=== PATIENT | male | born 1955 | race Caucasian/White ===

== ENCOUNTER → 2025-02-28 | Outpatient (CLI) | payer SELFPAY ==
[2025-02-28 12:02] LABS: PSA,Total - Annual Screen 0.57 ng/mL (0.02-4.00)
== END | disposition home or self-care (01) ==
PROVIDERS: PCP Physician Assistant; Referring Provider Urology; Visit Provider Urology
DX: Z12.5 Encounter for screening for malignant neoplasm of prostate (principal)
CPT/HCPCS: 36415; 84153; G0103